=== PATIENT | female | born 1930 | race Caucasian/White ===

== ENCOUNTER → 2016-04-20 | Outpatient (CLI) | payer OTHER, BC ==
[~2016-04-20] MED LIST: AMLODIPINE BESYL5 MG PO; CLONAZEPAM0.5 MG PO; FENOFIBRATE40 MG PO; LO-DOSE ASPIRIN81 M2 PO; METOPROLOL SUCC50 MG PO; NASONEX17 GM BOTH NARES; OMEPRAZOLE40 M1 PO; PAXIL10 MG PO; PROBIOTIC1 EAC1 PO; VANCOCIN 250 M250 MG PO; ZOCOR40 MG PO
== END | disposition home or self-care (01) ==
LOC: AMB 08:21
PROC: 3E0H7GC Introduction of Other Therapeutic Substance into Lower GI, Via Natural or Artificial Opening (ICD-10-PCS; principal; 2016-04-20)
DX: A04.7 Enterocolitis due to Clostridium difficile (principal)
CPT/HCPCS: 71010; G0455

== ENCOUNTER 2016-05-25 12:10 | Day surgery (SDC) | payer OTHER, BC ==
[~2016-05-25] VITALS: Ht 152.4 cm; Wt 51.4 kg
[~2016-05-25 12:10] MED LIST changes: +AMLODIPINE BESY10 MG PO; +ASPIR-LOW81 MG PO; +ATORVASTATIN CA20 MG PO; +CALCIUM 600 MG1 EACH PO; +OLANZAPINE5 MG PO; +SERTRALINE HCL25 MG PO; +SERTRALINE HCL50 MG PO
[2016-05-25 17:35] VITALS: BP 114/86
[2016-05-25 19:44] VITALS: BP 102/59
[2016-05-25 23:56] VITALS: BP 129/63
[2016-05-26 04:00] VITALS: BP 125/66
[2016-05-26 08:30] VITALS: BP 100/54
[2016-05-26 12:00] VITALS: BP 123/71
== END 2016-05-26 14:18 | disposition home or self-care (01) ==
LOC: CATH 12:10 → 4EAST 17:14 → CATH 05-26 14:30
PROC: 0JH606Z Insertion of Pacemaker, Dual Chamber into Chest Subcutaneous Tissue and Fascia, Open Approach (ICD-10-PCS; principal; 2016-05-25)
PROC: 02H63JZ Insertion of Pacemaker Lead into Right Atrium, Percutaneous Approach (ICD-10-PCS; 2016-05-25)
PROC: 02HK3JZ Insertion of Pacemaker Lead into Right Ventricle, Percutaneous Approach (ICD-10-PCS; 2016-05-25)
PROC: 3E0132A Introduction of Anti-Infective Envelope into Subcutaneous Tissue, Percutaneous Approach (ICD-10-PCS; 2016-05-25)
DX: I49.5 Sick sinus syndrome (principal); I42.9 Cardiomyopathy, unspecified; I44.1 Atrioventricular block, second degree; I45.0 Right fascicular block; I45.10 Unspecified right bundle-branch block; E78.5 Hyperlipidemia, unspecified; I10 Essential (primary) hypertension; Z79.82 Long term (current) use of aspirin
CPT/HCPCS: 71010; 93005; C1785; C1892; C1894; C1898; G0378; J0690; J1200; J2250; J3010; S0020